=== PATIENT | female | born 1975 | race American Indian/Alaskan Native ===

== ENCOUNTER 2022-01-11 01:16 | Emergency (ER) | payer BC, OTHER ==
[2022-01-11 01:34] VITALS: BP 153/93
[2022-01-11] MEDS ORDERED: ASPIRIN 325 MG TAB PO ONE (01:50)
--- NOTE | 2022-01-11 02:19 | XRay Report ---
CHEST 2 VIEWS INDICATION / CLINICAL INFORMATION: CHEST PAIN. COMPARISON: None available. FINDINGS: SUPPORT DEVICES: None. HEART / MEDIASTINUM: No significant abnormality. LUNGS / PLEURA: No significant pulmonary abnormality. No significant pleural effusion. No pneumothora x. ADDITIONAL FINDINGS: No significant additional findings. IMPRESSION: 1. No acute abnormality of the chest. Signer Name: George Hamlin MD Signed: 01/11/2022 2:14 AM Workstation Name: [id number]
[2022-01-11 02:43] LABS: Hematocrit 36.7 % (30.3-42.9); Hemoglobin 12.1 gm/dl (10.1-14.3); Mean Corpuscular HGB Conc 33 % (30-34); Mean Corpuscular Volume 85 fl (79-97); Platelet Count 249 K/mm3 (140-440); Red Cell Distribution Width 13.8 % (13.2-15.2)
[2022-01-11 02:47] LABS: Alanine Aminotransferase 11 units/L (7-56); Albumin 4.1 g/dL (3.9-5); BUN/Creatinine Ratio 13; Blood Urea Nitrogen 12 mg/dL (7-17); Calcium 8.9 mg/dL (8.4-10.2); Hemolysis Index 5
[2022-01-11 03:35] LABS: RBC Morphology Normal; Total Cells Counted 100
[2022-01-11] MEDS ORDERED: KETOROLAC 60 MG/2 ML INJ IM ONE (07:40)
[2022-01-11] MEDS ORDERED: ONDANSETRON 4 MG ODT TAB PO ONE (07:40)
--- NOTE | 2022-01-11 07:53 | Emergency Department Report ---
ED General Adult HPI - General Chief complaint: Chest Pain Stated complaint: CHEST PAIN/HEADACHE Source: patient Mode of arrival: Ambulatory Limitations: No Limitations - History of Present Illness Initial comments: 46-year-old male female presents to the ED complaining of chest pain x2 days and a headache x2 days. Patient stated chest pain is is intermittent and has resolved at present time. States that headache is more persistent and is currently a 6 out of 10. She states that she started working out with a new personal lines advisor this week and started having headaches. She denies any nausea or vomiting, blurry vision, shortness of breath at present time. Patient is al ert and oriented x3. No acute distress noted. No ill appearance noted -: Gradual Severity scale (0 -10): 8 - Related Data Home Medications Medication Instructions Recorded Confirmed Last Taken Furosemide 25 mg PO QDAY 01/11/22 01/11/22 1 Day Ago ~01/10/22 Previous Rx's Medication Instructions Recorded Last Taken Type Ketorolac [Toradol] 10 mg PO Q6H PRN 5 Days #20 tab 01/11/22 Unknown Rx Promethazine [Phenergan] 25 mg PO Q8HR PRN 15 Days #30 tab 01/11/22 Unknown Rx Allergies Allergy/AdvReac Type Severity Reaction Status Date / Time acetaminophen [From Percocet] Allergy Unknown Verified 01/11/22 01:50 oxycodone [From Percocet] Allergy Unknown Verified 01/11/22 01:50 ED Review of Systems ROS: Stated complaint: CHEST PAIN/HEADACHE Other details as noted in HPI Constitutional: denies: chills, fever Eyes: denies: eye pain, eye discharge, vision change ENT: denies: ear pain, throat pain Respiratory: denies: cough, shortness of breath, wheezing Cardiovascular: denies: chest pain, palpitations Endocrine: no symptoms reported Gastrointestinal: denies: abdominal pain, nausea, diarrhea Genitourinary: denies: urgency, dysuria, discharge Musculoskeletal: denies: back pain, joint swelling, arthralgia Skin: denies: rash, lesions Neurological: denies: headache, weakness, paresthesias Psychiatric: denies: anxiety, depression Hematological/Lymphatic: denies: easy bleeding, easy bruising ED Past Medical Hx - Medications Home Medications: Home Medications Medication Instructions Recorded Confirmed Last Taken Type Furosemide 25 mg PO QDAY 01/11/22 01/11/22 1 Day Ago History ~01/10/22 Ketorolac [Toradol] 10 mg PO Q6H PRN 5 Days #20 tab 01/11/22 Unknown Rx Promethazine [Phenergan] 25 mg PO Q8HR PRN 15 Days #30 tab 01/11/22 Unknown Rx ED Physical Exam - General Limitations: No Limitations General appearance: alert, in no apparent distress - Head Head exam: Present: atraumatic, normocephalic - Eye Eye exam: Present: normal appearance - ENT ENT exam: Present: mucous membranes moist - Neck Neck exam: Present: normal inspection - Respiratory Respiratory exam: Present: normal lung sounds bilaterally. Absent: respiratory distress - Cardiovascular Cardiovascular Exam: Present: regular rate, normal rhythm. Absent: systolic murmur, diastolic murmur, rubs, gallop - GI/Abdominal GI/Abdominal exam: Present: soft, normal bowel sounds - Extremities Exam Extremities exam: Present: normal inspection - Back Exam Back exam: Present: normal inspection - Neurological Exam Neurological exam: Present: alert, oriented X3 - Psychiatric Psychiatric exam: Present: normal affect, normal mood - Skin Skin exam: Present: warm, dry, intact, normal color. Absent: rash ED Course Vital Signs 01/11/22 01/11/22 01:20 07:47 Temperature 98.0 F Pulse Rate 105 H Respiratory 18 18 Rate Blood Pressure 153/93 O2 Sat by Pulse 97 Oximetry ED Medical Decision Making - Lab Data Result diagrams: 01/11/22 02:08 01/11/22 02:08 - Radiology Data [facility] [address] [place] [address] XRay Report Signed Patient: TORRES DUVALL MR#: [id number] : 1975 Acct:[id number] Age/Sex: 46 / F ADM Date: 01/11/22 Loc: ED Attending Dr: Ordering Physician: KERMIT MILLIGAN MD Date of Service: 01/11/22 Procedure(s): XR chest routine 2V Accession Number(s): [id number] cc: ED MD SRINI Fluoro Time In Minutes: CHEST 2 VIEWS INDICATION / CLINICAL INFORMATION: CHEST PAIN. COMPARISON: None available. FINDINGS: SUPPORT DEVICES: None. HEART / MEDIASTINUM: No significant abnormality. LUNGS / PLEURA: No significant pulmonary abnormality. No significant pleural e ffusion. No pneumothorax. ADDITIONAL FINDINGS: No significant additional findings. IMPRESSION: 1. No acute abnormality of the chest. Signer Name: George Hamlin MD Signed: 01/11/2022 2:14 AM Workstation Name: [id number] Transcribed By: ZEV Dictated By: George Hamlin MD Electronically Authenticated By: George Hamlin MD Signed Date/Time: 01/11/224 - Medical Decision Making 46-year-old male female presents to the ED complaining of chest pain x2 days and a headache x2 days. Patient stated chest pain is is intermittent and has resolved at present time. States that headache is more persistent and is currently a 6 out of 10. She states that she started working out with a new personal lines advisor this week and started having headaches. She denies any nausea or vomiting, blurry vision, shortness of breath at present time. Patient is alert and oriented x3. No acute distress noted. No ill appearance noted. Rechecked the patient is resting quietly quietly and comfortable and feeling better. I discussed the results of diagnostic study, my clinical impression and the plan for further treatment with the patient. Patient agrees with plan and discharge at this present time. All question addressed. I have given the patient instruction regarding a diagnosis ,expectation ,follow- up and return precaution. I explained to the patient that emergent condition may arise and to return to the ED for new worsen and any new persisting condition. I have explained the importance of following up with the primary care physician or referral physician listed below has instructed. The patient verbalized understanding of discharge instruction. Critical care attestation.: If time is entered above; I have spent that time in minutes in the direct care of this critically ill patient, excluding procedure time. ED Disposition Clinical Impression: Chest wall pain Headache Qualifiers: Headache type: unspecified Headache chronicity pattern: acute headache Intractability: not intractable Qualified Code(s): R51.9 - Headache, unspecified Disposition: 01 HOME / SELF CARE / HOMELESS Is pt being admited?: No Does the pt Need Aspirin: No Condition: Stable Instructions: Migraine Headache, [id number], Nonspecific Chest Pain, Adult Additional Instructions: Take medication as prescribed return to the ED for any worsening symptom Prescriptions: Promethazine [Phenergan] 25 mg PO Q8HR PRN 15 Days #30 tab PRN Reason: Nausea Ketorolac [Toradol] 10 mg PO Q6H PRN 5 Days #20 tab PRN Reason: Pain Referrals: PRIMARY CARE, [Primary Care Provider] - 3-5 Days GO PUENTE MD [Staff Physician] - 3-5 Days CAIN ROLLE MD [Staff Physician] - 3-5 Days Forms: Work/School Release Form(ED) Time of Disposition: 08:29
--- NOTE | 2022-01-12 18:12 | Electrocardiograph Report ---
[facility] Test Date: 2022-01-11 Test Time: 01:24:54 Pat Name: TORRES DUVALL Department: Room: Gender: F [employer]: : 1975 Requested By: ED DOC Order Number: [id number] Reading MD: Rosalinda Maradiaga Measurements Intervals [place] Rate: 93 P: 25 PA: 166 QRS: -33 QRSD: 92 T: 34 QT: 348 QTc: 434 Interpretive Statements Sinus rhythm Left axis deviation No previous ECG available for comparison Electronically Signed On 01-12-2022 18:12:08 EDT by Rosalinda Maradiaga
== END 2022-01-11 08:51 | disposition home or self-care (01) ==
LOC: ED 01:16
DX: R07.9 Chest pain, unspecified (principal); R51.9 Headache, unspecified; Z88.5 Allergy status to narcotic agent
CPT/HCPCS: 36415; 71046; 80053; 84484; 85007; 85025; 93005; 96372; 99284; J1885; J3490; Q0162